=== PATIENT | male | born 1935 | race Caucasian/White ===

== ENCOUNTER 2017-11-03 06:30 | Inpatient (IN) | payer OTHER, MEDICARE ==
[~2017-11-03] VITALS: Ht 167.6 cm; Wt 76.1 kg
[~2017-11-03 06:30] MED LIST: LOMO2.5T PO; METR250 PO
[2017-11-03] MEDS ORDERED: GENTAMICIN SULFATE 80 MG/2 ML VIAL ONE ×2 (07:02)
[2017-11-03] MEDS ORDERED: CHLORHEXIDINE GLUCONATE 2 % 1 PACK (2 CLOTHS) TOPICAL PRN (07:15)
[2017-11-03] MEDS ORDERED: SODIUM CHLORID 0.9% 500 ML IV PRN (07:15)
[2017-11-03] MEDS ORDERED: ceFAZolin 2 GM PREMIX 50 ML IV SCH (07:15)
[2017-11-03] MEDS ORDERED: METOPROLOL TARTRATE 25 MG TAB PO PRN (07:15)
[2017-11-03] MEDS ORDERED: POVIDONE IODINE 5% (ANTISEPSIS KIT) 4 APPLICATIONS EACH NARE PRN (07:15)
[2017-11-03] MEDS ORDERED: CHLORHEXIDINE GLUCONATE 4% SOLN 120 ML BTL TOPICAL SCH (07:15)
[2017-11-03] MEDS ORDERED: LACTATED RINGER'S 1000 ML IV PRN (07:15)
[2017-11-03] MEDS ORDERED: BUPIVACAINE/EPINEPHRINE 0.25% 50 ML VIAL ONE (08:08)
[2017-11-03] MEDS ORDERED: BUPIVACAINE/EPINEPHRINE 0.25% PF 10 ML VIAL ONE (08:08)
[2017-11-03] MEDS: VANCOMYCIN 1000 MG/NS 250 ML (for <70 kg) IV SCH ×4 (08:56→09:01)
[2017-11-03] MEDS ORDERED: TRANEXAMIC ACID IV SCH (09:00)
[2017-11-03] MEDS ORDERED: EXPAREL PERI-ARTICULAR INJECTION (TOTAL VOL. 60 ML) P-ARTICULR SCH ×2 (09:00)
[2017-11-03] MEDS ORDERED: SODIUM CHLORIDE 0.9% IV SCH (09:00)
[2017-11-03] MEDS ORDERED: DEXAMETHASONE SOD PHOS 4 MG/ML VIAL ONE (10:38)
--- NOTE | 2017-11-03 11:45 | PD.OP ---
cc: Man Noyola MD Operative Report Date of Surgery: Nov 03, 2017 Preoperative Diagnosis: Malfunctioning left medial compartment resurfacing arthroplasty Postoperative Diagnosis: Same. Loosened tibial component Procedure: Revision left total knee replacement arthroplasty Anesthesia: Gen. Surgeon: Man Noyola Dolly Operator(s): MALIK Lewis Operation and Findings: EBL: 50 cc INDICATION: This patient presents with left knee pain related to subsidence of the tibial component with evidence of loosening. The patient now presents for surgical treatment. NOTE: Kori Lewis PA-C was present for the entire surgical procedure as my heel sprayer first. In my medical opinion that individual's skill and care was necessary for proper management of this patient. TOURNIQUET TIME: 83 minutes COMPANY: [employer] FEMUR: Size 5, posterior stabilized, cemented TIBIA: Size 4, fixed bearing, cemented PATELLA: 38 mm POLYETHYLENE INSERT: 10 mm PROCEDURE: This patient was brought the operating room and anesthetized in the supine position. The patient was positioned supine on the table. The tourniquet was placed about the thigh, and the leg was scrubbed with alcohol followed by Hibiclens followed by ChloraPrep and draped sterilely. A timeout was done, and antibiotics were given. After exsanguination the tourniquet was inflated to 250 mmHg. An anterior incision was made and a median parapatellar arthrotomy was performed. The patella was released laterally and subluxed allowing freehand cut of the patella which was then sized. A metal cap was placed over the exposed patellar surface for protection. A pilot submersible hole was placed in the distal femur allowing a 5 valgus cut removing 10 mm from the distal femur. The initial anterior cut was partially made. The medial resurfacing arthroplasty was loosened with osteotomes. This was very carefully removed from the surrounding cement and bone. Very carefully in a retrograde fashion the femoral component was removed. The distal femoral cut was completed. Anterior posterior and chamfer cuts were made. By the nature of the cut, the posterior medial side did not need an augment. No distal augment was necessary. The posterior stabilize osteotomy was made. The attention was directed to the tibia. Retractors were positioned. The external alignment guide was used allowing the lateral tibia to be used as referencing guide and cut utilizing an oscillating saw taking care to avoid any injury to the surrounding soft tissues. There was a defect in the medial side. The medial component was loose and was removed without difficulty. This was sized properly. Trial reduction showed that the insert fit nicely. The patient had range of motion extension 0 flexion 125. A medial release was not necessary. The bony surfaces prepared. On the back table 2 packets of methylmethacrylate were mixed. Bone grafting of the medial tibia was not necessary. The components were cemented. Excess cement was removed. The tourniquet let down and hemostasis was controlled. The final plastic insert was inserted. Range of motion was the same as previously noted. A drain was brought through a separate stab incision. A field block was used with local anesthesia for pain control. The arthrotomy was repaired with interrupted #1 Vicryl suture, subcutaneous tissue 2-0 Vicryl suture and skin with metallic ephraim A sterile dressing was applied. Sponge counts, needle counts and instrument counts were all correct. The patient tolerated procedure well and was taken to recovery in satisfactory condition. FINDINGS: There was evidence of loosening of the tibial component. There was subsidence. The final solution appeared to be excellent. No buildups were necessary. No complication was appreciated. Man Noyola MD Nov 03, 2017 11:45
[2017-11-03] MEDS ORDERED: OXYC1TAB63 PO (11:48)
[2017-11-03] MEDS ORDERED: ECASA81 PO (11:48)
[2017-11-03] MEDS ORDERED: DO NOT ADM ANY ANTICOAGULANT DRUGS PRN (11:59)
[2017-11-03] MEDS ORDERED: ONDANSETRON HCL 4 MG/2 ML VIAL IV ONE (12:00)
[2017-11-03] MEDS ORDERED: PROPOFOL 200 MG/20 ML AMP IV ONE (12:00)
[2017-11-03] MEDS ORDERED: MISCELLANEOUS NURSING INFORMATION XX PRN (12:00)
[2017-11-03] MEDS ORDERED: PHENYLEPH/NS 1000 MCG/10 ML SYR IV ONE (12:00)
[2017-11-03] MEDS ORDERED: DEXAMETHASONE SOD PHOS 4 MG/ML VIAL IV ONE (12:00)
[2017-11-03] MEDS ORDERED: NALOXONE HCL 0.4 MG/ML AMP IV PUSH PRN (12:00)
[2017-11-03] MEDS ORDERED: oxyCODONE/ACETAMINOPHEN 5 MG/325 MG TAB PO PRN (12:00)
[2017-11-03] MEDS ORDERED: LIDOCAINE HCL 1% PF 5 ML SYRINGE OTHER ONE (12:00)
[2017-11-03] MEDS ORDERED: LACTATED RINGER'S 1000 ML INJ 1,000 ML IV ONE (12:00)
[2017-11-03] MEDS ORDERED: ASPIRIN EC 81 MG TABEC PO ONE (12:00)
[2017-11-03] MEDS ORDERED: MORPHINE SULFATE 8 MG/ML INJ IM PRN (12:00)
[2017-11-03] MEDS ORDERED: Post-op Orders (for Pharmacy) XX ONE (12:00)
[2017-11-03] MEDS ORDERED: MIDAZOLAM HCL 2 MG/2 ML VIAL ONE (12:14)
[2017-11-03] MEDS: LACTATED RINGER'S 1000 ML INJ 1,000 ML IV SCH ×2 (12:18→23:09)
[2017-11-03] MEDS ORDERED: *morphine SULFATE 10 MG/ML PERIprocedure ONLY ONE (12:35)
--- NOTE | 2017-11-03 13:47 | RADRPT ---
EXAM DATE/TIME: 11/03/2017 12:53 [facility] COMPARISON: No previous studies available for comparison. INDICATIONS : Post op left knee arthroplasty. MEDICAL HISTORY : None. SURGICAL HISTORY : None. ENCOUNTER: Initial ACUITY: 1 day PAIN SCORE: Non-responsive. LOCATION: Left knee FINDINGS: Patient is status post placement of a left knee prosthesis. There is good position and alignment of t he prosthesis and bony structures. The bony structures are grossly intact. Postsurgical changes are p resent. CONCLUSION: Good position and alignment on this postoperative examination. Florentino Hernandez MD on November 03, 2017 at 13:45 Board Certified Radiologist. This report was verified electronically.
[2017-11-03 16:15] VITALS: BP 142/61; PULSE 84; RESP 19; TEMP 95.6; O2SAT 95
[2017-11-03 19:08] VITALS: BP 125/70; PULSE 71; RESP 18; TEMP 96.7; O2SAT 94
[2017-11-03 20:28] VITALS: O2SAT 95
[2017-11-03] MEDS ORDERED: SENNOSIDES 8.6 MG TAB PO SCH (21:00)
[2017-11-03] MEDS ORDERED: TEMAZEPAM 15 MG CAP PO PRN (21:00)
[2017-11-03] MEDS: ASPIRIN EC 81 MG TABEC PO SCH (21:46)
[2017-11-03] MEDS: MAGNESIUM HYDROXIDE SUSP 30 ML CUP PO SCH (21:47)
[2017-11-03] MEDS ORDERED: WALKER WHEELS/F1 MIS (23:21)
[2017-11-03] MEDS ORDERED: CPMMACHINE (23:21)
[2017-11-03] MEDS ORDERED: COMMODE 3-IN-11 MIS (23:22)
--- NOTE | 2017-11-03 23:25 | HHI.FF ---
Face to Face Verification Diagnosis: (1) Mechanical loosening of internal left knee prosthetic joint, initial encounter Physical Therapy Gait training, Safety evaluation, Transfer training, bed to chair Knee: Total knee, Protocol: Left, Full weight bearing Canvas Knee Splint: When in bed & 2 pillows btw thighs, Other Left LE Weight Bearing: WB as tolerated Additional Instructions PT 3-4 days/wk for 2 weeks. WBAT LeftLE. TKA protocol. CPM bid as tolerated 0 -60 with goal 100 flexion. Ice operative site 2-3 times daily. Nursing RN Days per Week: 2 x Week(s): 1 Dressing Changes: Do not change dressing Additional Instructions Vitals assessment. Dressing assessment - do not change unless saturated. I have seen patient Sanjay Chavez on 11/03/17. My clinical findings support the need for the requested home health care services because: Limited ability to care for self High risk of falls I certify that my clinical findings support that this patient is homebound because: Post-op weakness Unsteady gait/balance Kori Lewis Nov 03, 2017 23:25
[2017-11-03 23:36] VITALS: BP 105/50; PULSE 80; RESP 18; TEMP 96.9; O2SAT 94
[2017-11-04] MEDS: LACTATED RINGER'S 1000 ML INJ 1,000 ML IV SCH ×2 (00:30→12:22)
[2017-11-04 03:37] VITALS: BP 97/49; PULSE 74; RESP 18; TEMP 97.3; O2SAT 93
[2017-11-04 06:00] VITALS: BP 105/50
[2017-11-04 06:31] LABS: HEMATOCRIT 36.8 % (39.0-51.0); HEMOGLOBIN 12.7 GM/DL (13.0-17.0)
[2017-11-04 07:29] VITALS: BP 100/45; PULSE 69; RESP 18; TEMP 98.3; O2SAT 97
[2017-11-04] MEDS: oxyCODONE/ACETAMINOPHEN 5 MG/325 MG TAB PO PRN ×2 (08:07→12:11)
[2017-11-04] MEDS: ASPIRIN EC 81 MG TABEC PO SCH (08:07)
[2017-11-04] MEDS: MAGNESIUM HYDROXIDE SUSP 30 ML CUP PO SCH (08:07)
[2017-11-04 11:30] VITALS: BP 105/41; PULSE 77; RESP 18; TEMP 97.3; O2SAT 94
[2017-11-04] MEDS ORDERED: MISCELLANEOUS PHARMACY INFORMATION XX ONE (12:00)
--- NOTE | 2017-11-04 13:08 | HHI.DCPOC ---
Discharge Care Plan Diagnosis: (1) Mechanical loosening of internal left knee prosthetic joint, initial encounter Your Health Problems Are: Difficulty with ADL Incision/Drains Swelling Goals to Promote Your Health * To prevent worsening of your condition and complications * To maintain your health at the optimal level Directions to Meet Your Goals Take your medications as prescribed Follow your dietary instruction Follow activity as directed Keep your appointments as scheduled Take your immunizations and boosters as scheduled If your symptoms worsen call your PCP, if no PCP go to Urgent Care Center or Emergency Room Smoking is Dangerous to Your Health. Avoid second hand smoke Call the 24-hour hour crisis hotline for domestic abuse at Kori Lewis Nov 04, 2017 13:08
--- NOTE | 2017-11-04 13:09 | HHI.DS ---
Discharge Summary Admission Date Nov 03, 2017 at 06:30 Discharge Date: Nov 04, 2017 Admitting Diagnosis see below Diagnosis: (1) Mechanical loosening of internal left knee prosthetic joint, initial encounter Diagnosis: Principal ICD Codes: T84.033A - Mechanical loosening of internal left knee prosthetic joint, initial encounter Procedures Revisional left total knee arthroplasty, posterior stabilized Brief History This is a 82 year old male patient CBC/BMP: 11/04/17 0545 Significant Findings Laboratory Tests Test 11/04/17 05:45 Hemoglobin 12.7 GM/DL (13.0-17.0) Hematocrit 36.8 % (39.0-51.0) Hospital Course pod#1 hhc. Discharge Disposition: Disch w/ Home Health Serv Discharge Instructions Diet Instructions: As Tolerated, No Restrictions, High Fiber Diet Activities You Can Perform: Weight Bearing as [place] Activities to Avoid: Strenuous Activity Additional Activity Instruc.: TKA protocol New Medications: Commode 3-in-1 (Commode 3-in-1) 1 Mis Mis EA .XX DIRECTED, #1 0 Refills CPM-Continuous Passive Motion Machine (CPM-Continuous Passive Motion Machine) 1 Ea Device EA .XX DIRECTED, #1 0 Refills Walker with Front Wheels (Walker with Front Wheels) 1 Mis Mis EA .XX DIRECTED, #[address] (Aspirin DR) 81 Mg Tabdr 81 MG PO BID for Prevent Blood Clot, #60 TAB Oxycodone HCl/Acetaminophen (Oxycodone-Acetaminophen 5-325) 5 Mg-325 Mg Tablet 1 TAB PO Q4H PRN for PAIN, #50 TAB Kori Lewis Nov 04, 2017 13:09
--- NOTE | 2017-11-04 13:12 | PD.ORT.PN ---
Subjective Subjective Remarks He is doing well. He is eager to get home. He did not sleep well last night and looks forward to his own home. No new leg pain. No cp or sob. Ready for discharge. Objective Vitals Vital Signs Date Time Temp Pulse Resp B/P (MAP) Pulse Ox O2 Delivery O2 Flow Rate FiO2 11/04/17 11:30 97.3 77 18 105/41 (62) 94 11/04/17 09:49 Room Air 11/04/17 07:29 98.3 69 18 100/45 (63) 97 11/04/17 06:00 105/50 (68) 11/04/17 03:37 97.3 74 18 97/49 (65) 93 11/03/17 23:36 96.9 80 18 105/50 (68) 94 11/03/17 20:28 95 21 11/03/17 19:08 96.7 71 18 125/70 (88) 94 11/03/17 16:24 Room Air 11/03/17 16:15 95.6 84 19 142/61 (88) 95 11/03/17 16:00 98.3 91 16 142/67 (92) 95 Nasal Cannula 2 11/03/17 15:00 84 15 126/60 (82) 95 Nasal Cannula 2 11/03/17 14:00 88 14 115/56 (75) 95 Nasal Cannula 2 11/03/17 13:30 87 17 122/58 (79) 95 Nasal Cannula 2 I/O 11/03/17 11/03/17 11/03/17 11/04/17 11/04/17 11/04/17 07:00 15:00 23:00 07:00 15:00 23:00 Intake Total 2210 ml 1160 ml 1300 ml Output Total 50 ml 800 ml 850 ml 300 ml Balance 2160 ml 360 ml 450 ml -300 ml Intake Oral 10 ml 560 ml 720 ml IV Total 2200 ml 600 ml 580 ml Output Urine Total 800 ml 850 ml 300 ml Estimated Blood Loss 50 ml # Voids 1 2 1 # Bowel Movements 1 0 0 Result Diagram: 11/04/17 0545 Procedures Revisional left total knee arthroplasty, posterior stabilized Objective Remarks Sitting up in chair NAD VSS Left LE Knee dressing c/d/i, no erythema, mild swelling +motor at distal, +sens leg, +nvi Neg homans Assessment & Plan Ortho Post Op Day #: 1 Problem List: (1) Mechanical loosening of internal left knee prosthetic joint, initial encounter ICD Codes: T84.033A - Mechanical loosening of internal left knee prosthetic joint, initial encounter Assessment and Plan pod#1 s/p Revisional L TKA, post-stab Ortho stable. Ok to d/c home w hhc today. Oxycodone 5mg as needed. ASA 81mg twice daily Hold dressing changes unless saturated. PT - WBAT LLE. TKA precautions. CKS at night for 3-4 weeks. CPM twice daily as tolerated. F/U in 2 weeks as scheduled. F2F written. Kori Lewis Nov 04, 2017 13:11
== END 2017-11-04 13:59 | disposition home health service (06) | DRG 468 ==
LOC: HSDI 06:30 → N06A 16:25
PROVIDERS: ADMIT Orthopaedic Surgery Orthopaedic Surgery of the Spine; ATTEND Orthopaedic Surgery Orthopaedic Surgery of the Spine
PROC: 0SRD0J9 Replacement of Left Knee Joint with Synthetic Substitute, Cemented, Open Approach (ICD-10-PCS; 2017-11-03)
PROC: 0SPD0JZ Removal of Synthetic Substitute from Left Knee Joint, Open Approach (ICD-10-PCS; principal; 2017-11-03 08:59)
DX: T84.033A Mechanical loosening of internal left knee prosthetic joint, initial encounter (principal); E78.5 Hyperlipidemia, unspecified; M25.562 Pain in left knee; Y79.2 Prosthetic and other implants, materials and accessory orthopedic devices associated with adverse incidents
CPT/HCPCS: 36415; 73560; 85014; 85018; 86850; 86900; 86901; 86920; 94150; C1776; C9290; J0690; J1100; J1580; J2250; J2270; J2370; J2405; J3010; J3370; J7050; J7120; L1830